=== PATIENT | male | born 1975 | race Hispanic/Latino ===

== ENCOUNTER → 2017-07-31 | Outpatient (CLI) | payer OTHER | END | disposition home or self-care (01) | LOC: OIH 11:17 | PROVIDERS: ATTEND Internal Medicine | DX: R05 Cough (principal); R10.12 Left upper quadrant pain | CPT/HCPCS: 71046; 74021 ==

== ENCOUNTER → 2017-09-08 | Outpatient (CLI) | payer OTHER | END | disposition home or self-care (01) | LOC: OIH 12:38 | PROVIDERS: ATTEND Internal Medicine | DX: M77.31 Calcaneal spur, right foot (principal); M77.32 Calcaneal spur, left foot | CPT/HCPCS: 73630 ==